=== PATIENT | female | born 1940 | race Caucasian/White ===

== ENCOUNTER → 2023-09-16 12:25 | Outpatient (REF) | payer MEDICARE, OTHER, SELFPAY ==
[2023-09-16 13:52] LABS: ALT (SGPT) 19 U/L (0-35); AST (SGOT) 29 U/L (14-36); Albumin 4.5 g/dl (3.5-5.0); Alkaline Phosphatase 98 U/L (38-126); Blood Urea Nitrogen 22 mg/dl (7-17); Calcium 9.9 mg/dl (8.4-10.2); Carbon Dioxide 26 mmol/L (22-30); Chloride 106 mmol/L (98-107); Glucose 84 mg/dl (70-99); Potassium 4.8 mmol/L (3.5-5.1); Sodium 140 mmol/L (135-145); Total Bilirubin 0.8 mg/dl (0.2-1.3); eGFR > 60.00
== END ==
LOC: REG 12:25
PROVIDERS: ATTENDING PHYSICIAN Nurse Practitioner
DX: K57.92 Diverticulitis of intestine, part unspecified, without perforation or abscess without bleeding (principal)
CPT/HCPCS: 36415; 74177; 80053; Q9967

== ENCOUNTER 2023-09-23 14:52 | Emergency (ER) | payer MEDICARE, OTHER, SELFPAY ==
[2023-09-23 14:54] VITALS: BP 146/75
--- NOTE | 2023-09-23 15:22 | ED.GENMED ---
History of Present Illness
General
Chief Complaint: Abdominal Symptoms
Time Seen by Provider: 09/23/23 14:57
History of Present Illness
History of Present Illness:
83-year-old female presents emergency department for evaluation of persistent symptoms of diverticulitis. The patient started with lower abdominal pain approximately a week and a half ago was seen by her primary care physician. She was started on
Augmentin and [address] week [address] scan showing mild acute diverticulitis. She is completing her course of Augmentin today but symptoms did not improve. Denies fevers or chills. Has had loose stool since the onset of symptoms. No chest pain or
shortness of breath.
Past History
Past History
ED Past Medical History: GERD, HTN, Other (Diverticulosis) and Other (Ischemic colitis)
ED Past Surgical History: Orthopedic
Social History
Tobacco: Non-smoker
Alcohol: Occasional
Drug: None
Personal:
Living: with family
Employment: Employed
Review of Systems
Review of Systems
Allergies reviewed?: Yes
All Other Systems: ROS reviewed and negative except as documented in HPI and ROS
Phy Exam
Physical Exam
Physical Exam:
GEN: Well appearing, NAD, WDWN
Eyes: PERRLA, EOMs intact, no scleral icterus
HENT: NCAT, oral mucosa moist
Lungs: CTAB
Cardiac: RRR
Abdomen: Soft, mild suprapubic and left lower quadrant tenderness, no rigidity
Neuro: AO x 3
MSK: No gross deformity or ecchymosis. No edema. No digital clubbing
Skin: No rashes, petechiae. Normal color, no pallor or jaundice.
Psych: Calm, cooperative, proper hygiene
Course
Orders/Labs/Results
Orders:
Orders
09/23/23 15:22
CT Abd/Pel (IV only)-DH only Urgent
Comment:
Reason For Exam: LLQ pain
09/23/23 15:59
Complete Blood Count/With Diff Urgent
Comprehensive Metabolic Panel Urgent
Urinalysis Reflex To Culture Urgent
Date Specimen was Collected: 09/23/23
Time Specimen was Collected: 15:28
Urine Microscopic Reflex Cult Urgent
Urine Culture Urgent
NOAH Source: U
Specimen Description:
Date Specimen was Collected: 09/23/23
Time Specimen was Collected: 15:28
Abnormal Lab Results
09/23/23
15:59
RBC 3.56 L 10^6/uL
(4.20-5.40)
Hgb 11.2 L g/dL
(12.0-16.0)
Hct 32.8 L %
(37.0-47.0)
MCH 31.5 H pg
(27.0-31.0)
MPV 11.4 H fL
(7.4-10.4)
Chloride 109 H mmol/L
(98-107)
BUN 34 H mg/dl
(7-17)
Urine Ketones Trace A
(Negative)
Leukocyte Esterase Rfl 1+ A
(Negative)
09/23/23 15:59
09/23/23 15:59
Vital Signs
Initial and Last Documented VS:
Initial Vital Signs
Temp Pulse Resp BP Pulse Ox
98.5 F 66 16 146/75 98
09/23/23 14:54 09/23/23 14:54 09/23/23 14:54 09/23/23 14:54 09/23/23 14:54
Last Documented Vital Signs
Temp Pulse Resp BP Pulse Ox
98.5 F 64 16 141/81 99
09/23/23 14:54 09/23/23 17:45 09/23/23 17:45 09/23/23 17:45 09/23/23 17:45
MDM/Problems Addressed
MDM/Problems Addressed:
Repeat CT shows no evidence for perforation or abscess, patient is clinically well with normal labs. Will start a second course of antibiotics and switch to Cipro and metronidazole, discussed importance of clear liquid diet and return parameters
*Critical Care Note
Total Time (30-74mins, 75-104mins- exclusive of procedures): Not Applicable
ED Attending Note
-
Portions of this chart may have been created with voice recognition software.� Occasional wrong word or��sound alike� substitutions may have occurred due to the inherent limitations of voice recognition software.
Discharge Plan
Departure
Patient Disposition: Home (Routine Discharge)
Date of Disposition: 09/23/23
Time of Disposition: 17:43
Patient with high blood pressure during this ER visit?: No
Discharge Problem:
Acute diverticulitis
Instructions: Clear Liquid Diet
Prescriptions:
New
ciprofloxacin HCl 500 mg tablet
500 mg PO BID 7 Days Qty: 14 0RF
metronidazole 500 mg tablet
500 mg PO TID 7 Days Qty: 21 0RF
No Action
losartan 50 MG tablet
50 mg PO DAILY
guar gum 1 PKT packet
1 pkt PO PRN PRN (Reason: constipation)
docosahexaenoic acid-epa 1 CAP capsule
1 cap PO DAILY
turmeric-turmeric root extract 1 EACH capsule
1 ea PO DAILY
omeprazole 40 MG capsule,delayed release(DR/EC)
40 mg PO DAILY
hydrocodone-acetaminophen 1 TABLET tablet
1 tab PO Q4HPRN PRN (Reason: moderate to severe pain) Qty: 15 0RF
docusate sodium [Colace] 100 MG capsule
100 mg PO BID Qty: 30 0RF
magnesium hydroxide [Milk of Magnesia] 400 MG/5 ML suspension
30 ml PO DAILYPRN PRN (Reason: constipation) Qty: 1 0RF
acetaminophen 325 MG tablet
650 mg PO Q4HPRN PRN (Reason: mild pain) Qty: 0 0RF
cholecalciferol (vitamin D3) 1,000 UNITS tablet
1,000 units PO DAILY Qty: 0 0RF
ibuprofen [Advil] 200 MG tablet
600 mg PO Q6HPRN PRN (Reason: pain) Qty: 0 0RF
Referrals:
Aaliyah Pennington CRNP [Family Provider] -
Interventions
Interventions:
*Risk Screen - Suicide Last Done: 09/23/23 15:28
*General Assessment Last Done: 09/23/23 15:28
*Neglect/Abuse Screening Last Done: 09/23/23 15:28
ED- Fall Risk Assessment Last Done: 09/23/23 15:28
*ED COVID-19 Vaccine History Last Done: 09/23/23 15:28
*Nursing Disposition Last Done: 09/23/23 17:59
SK-Ezwtwb-Lpybbjepul Assessment Last Done: 09/23/23 15:28
Discharge Date and Time
Discharge Date/Time: 09/23/23 18:02
Print Language: AZERBAIJANI
[2023-09-23 16:12] LABS: % Basophils 0.8 % (0-2); % Eosinophils 1.8 % (0-6); % Immature Granulocytes 0.1 % (0-0.5); % Lymphocytes 27.4 % (20.5-51.1); % Monocytes 7.5 % (1.7-9.3); % Neutrophils 62.4 % (42.2-75.2); Absolute Basophils 0.1 10^3/uL (0-0.2); Absolute Eosinophils 0.1 10^3/uL (0-0.7); Absolute Lymphocytes 2.1 10^3/uL (1.2-3.4); Absolute Monocytes 0.6 10^3/uL (0.1-0.6); Absolute Neutrophils 4.7 10^3/uL (1.4-6.5); Hematocrit 32.8 % (37.0-47.0); Hemoglobin 11.2 g/dL (12.0-16.0); Mean Corp Hgb Conc. 34.1 g/dL (33.0-37.0); Mean Corpuscular Hgb 31.5 pg (27.0-31.0); Mean Corpuscular Volume 92.1 fL (81.0-99.0); Mean Platelet Volume 11.4 fL (7.4-10.4); Nucleated Red Blood Cells % 0 %; Platelet Count 230 10^3/uL (130-400); Red Blood Cell Count 3.56 10^6/uL (4.20-5.40); Red Cell Dist. Width 13.4 % (11.5-14.5); White Blood Cell Count 7.6 10^3/uL (4.8-10.8)
[2023-09-23 16:26] LABS: ALT (SGPT) 16 U/L (0-35); AST (SGOT) 28 U/L (14-36); Albumin 4.2 g/dl (3.5-5.0); Alkaline Phosphatase 118 U/L (38-126); Blood Urea Nitrogen 34 mg/dl (7-17); Carbon Dioxide 23 mmol/L (22-30); Chloride 109 mmol/L (98-107); Glucose 95 mg/dl (70-99); Potassium 4.1 mmol/L (3.5-5.1); Sodium 140 mmol/L (135-145); Total Bilirubin 0.4 mg/dl (0.2-1.3); Total Protein 6.7 g/dl (6.3-8.2); Urine Albumin Negative (Neg - Trace); Urine Bilirubin Negative (Negative); Urine Character Clear (Clear); Urine Color Yellow; Urine Glucose Negative (Negative); Urine Ketone Trace (Negative); Urine Leukocyte 1+ (Negative); Urine Nitrite Negative (Negative); Urine Occult Blood Negative (Negative); Urine Specific Gravity 1.025 (<1.030); Urine Urobilinogen Negative (Neg - 1+); eGFR > 60.00
[2023-09-23 16:57] LABS: Urine Red Blood Cell 0-2 /HPF (0-2)
[2023-09-23 17:45] VITALS: BP 141/81
== END 2023-09-23 18:02 | disposition home or self-care (01) ==
LOC: EMR 14:52
PROVIDERS: Physician Assistant; EMERGENCY PHYSICIAN Emergency Medicine; FAMILY PHYSICIAN Nurse Practitioner
DX: K57.92 Diverticulitis of intestine, part unspecified, without perforation or abscess without bleeding (principal); K21.9 Gastro-esophageal reflux disease without esophagitis; I10 Essential (primary) hypertension
CPT/HCPCS: 99284; 74177; 80053; 81003; 81015; 85025; 87086; Q9967

== ENCOUNTER → 2023-10-01 12:38 | Outpatient (REF) | payer MEDICARE, OTHER, SELFPAY | LOC: REG 12:38 | PROVIDERS: ATTENDING PHYSICIAN Internal Medicine Gastroenterology; FAMILY PHYSICIAN Nurse Practitioner | DX: R19.7 Diarrhea, unspecified (principal) | CPT/HCPCS: 87324; 87449 ==

== ENCOUNTER 2023-10-07 08:36 | Emergency (ER) | payer MEDICARE, OTHER, SELFPAY ==
[2023-10-07] VITALS (7 sets, daily range): BP systolic 74–136; BP diastolic 55–71; BMI 35.8
--- NOTE | 2023-10-07 08:39 | ED.GENMED ---
History of Present Illness
General
Chief Complaint: Abdominal Pain
Time Seen by Provider: 10/07/23 08:39
History of Present Illness
History of Present Illness:
HPI: The patient came in by ambulance. She has been having abdominal pain over the past month and states she had been on Augmentin initially and then has been on Cipro and Flagyl. She was improving yesterday but then diarrhea recurred yesterday.
She states she was tested for C. difficile last month and she was negative.
EXAM:
GENERAL: Well appearing in no distress
HEENT: Moist oral mucosa
CARDIOVASCULAR: No murmurs, normal heart rate, regular rhythm, No chest wall tenderness
PULMONARY: No respiratory distress, breath sounds are clear and equal
ABDOMEN: Soft with no peritoneal signs, minimal diffuse abdominal tenderness
NEUROLOGIC: Excellent strength all extremities, no coordination deficits
PSYCHIATRIC: Appropriate mental status, normal insight and judgement
EXTREMITIES: Nontender, no edema, moves all extremities equally
SKIN: No rash, no lesions
TIME OF INITIAL ENCOUNTER: 8:45 AM
NUMBER AND COMPLEXITY OF PROBLEMS ADDRESSED AT THE ENCOUNTER
� Chronic conditions affecting care: High blood pressure, diverticulosis, basal cell carcinoma
� Acute Exacerbation and/or Progression of Chronic Illness: This is an acute but recurring problem
� Differential Diagnosis includes: Diverticular disease, C. difficile, infectious diarrhea, IBS
AMOUNT AND/OR COMPLEXITY OF DATA TO BE REVIEWED AND ANALYZED
� I performed an independent evaluation of and my interpretation is:
EKG:
CT:
X-rays:
Laboratory Studies: White count 10.6, BUN 25, creatinine 0.9; C. difficile negative
Other:
� Review of other/old records: I reviewed records. The patient was seen here approximately 2 weeks ago. At that time she had already been on Augmentin and then after ED eval she was switched to Cipro and Flagyl. The CT on
09/23/2023 showed minor diverticulitis.
� Clinical information was obtained by an independent historian: None needed
� Prescriptions/Medications Considered but not given:
� Further testing considered but not performed: Considered CT imaging however the patient has had 2 CTs that showed no more than mild diverticulitis without evidence for complication
RISK OF COMPLICATIONS AND/OR MORBIDITY OR MORTALITY OF PATIENT MANAGEMENT
� Social determinants of health affecting care:
� Discussion with other providers: I have contacted GI front office to try to expedite outpatient follow-up
� Escalation of care including admission/observation vs risk of discharge considered: BUN to creatinine ratio slightly elevated however this has been present in the past. Regardless, she was given IV fluids.
Her white count is within normal range. She appears fairly comfortable. I recommend against further antibiotics given the ongoing diarrhea. C. difficile is negative. Stool cultures pending.
Past History
Past History
ED Past Medical History: GERD, HTN, Other (Diverticulosis) and Other (Ischemic colitis)
ED Past Surgical History: Orthopedic
Social History
Tobacco: Non-smoker
Alcohol: Occasional
Drug: None
Personal:
Living: with family
Employment: Employed
Phy Exam
Physical Exam
Physical Exam:
See HPI
Course
Orders/Labs/Results
Orders:
Orders
10/07/23 08:49
0.9% Sodium Chloride 1000 ml [Nss] 1,000 ml IV BOLUS
10/07/23 08:53
Complete Blood Count/With Diff Urgent
Comprehensive Metabolic Panel Urgent
Lipase Urgent
10/07/23 10:54
Ova & Parasites Giardia/Crypto AG [Giardia/Cryptosporidium Ag] Urgent
NOAH Source: Feces/Stool
Specimen Description:
Date Specimen was Collected: 10/07/23
Time Specimen was Collected: 10:52
STOOL [C difficile Antigen & Toxins] Urgent
NOAH Source: Feces/Stool
Specimen Description:
Date Specimen was Collected: 10/07/23
Time Specimen was Collected: 10:52
Stool Culture Urgent
NOAH Source: Feces/Stool
Specimen Description:
Date Specimen was Collected: 10/07/23
Time Specimen was Collected: 10:52
Abnormal Lab Results
10/07/23
08:53
RBC 3.65 L 10^6/uL
(4.20-5.40)
Hgb 11.3 L g/dL
(12.0-16.0)
Hct 33.6 L %
(37.0-47.0)
MPV 10.9 H fL
(7.4-10.4)
Absolute Neuts (auto) 8.0 H 10^3/uL
(1.4-6.5)
Neutrophils % 75.3 H %
(42.2-75.2)
Lymphocytes % 16.1 L %
(20.5-51.1)
Chloride 108 H mmol/L
(98-107)
BUN 25 H mg/dl
(7-17)
Glucose 109 H mg/dl
(70-99)
10/07/23 08:53
10/07/23 08:53
Vital Signs
Initial and Last Documented VS:
Initial Vital Signs
BP
108/61
10/07/23 08:42
Last Documented Vital Signs
Temp Pulse Resp BP Pulse Ox
98.5 F 81 23 122/55 98
10/07/23 08:44 10/07/23 10:30 10/07/23 10:30 10/07/23 10:00 10/07/23 10:30
*Critical Care Note
Total Time (30-74mins, 75-104mins- exclusive of procedures): Not Applicable
ED Attending Note
-
Portions of this chart may have been created with voice recognition software.� Occasional wrong word or��sound alike� substitutions may have occurred due to the inherent limitations of voice recognition software.
Discharge Plan
Departure
Prescriptions:
No Action
losartan 50 MG tablet
50 mg PO DAILY
guar gum 1 PKT packet
1 pkt PO PRN PRN (Reason: constipation)
docosahexaenoic acid-epa 1 CAP capsule
1 cap PO DAILY
turmeric-turmeric root extract 1 EACH capsule
1 ea PO DAILY
omeprazole 40 MG capsule,delayed release(DR/EC)
40 mg PO DAILY
hydrocodone-acetaminophen 1 TABLET tablet
1 tab PO Q4HPRN PRN (Reason: moderate to severe pain) Qty: 15 0RF
docusate sodium [Colace] 100 MG capsule
100 mg PO BID Qty: 30 0RF
magnesium hydroxide [Milk of Magnesia] 400 MG/5 ML suspension
30 ml PO DAILYPRN PRN (Reason: constipation) Qty: 1 0RF
ciprofloxacin HCl 500 mg tablet
500 mg PO BID 7 Days Qty: 14 0RF
metronidazole 500 mg tablet
500 mg PO TID 7 Days Qty: 21 0RF
acetaminophen 325 MG tablet
650 mg PO Q4HPRN PRN (Reason: mild pain) Qty: 0 0RF
cholecalciferol (vitamin D3) 1,000 UNITS tablet
1,000 units PO DAILY Qty: 0 0RF
ibuprofen [Advil] 200 MG tablet
600 mg PO Q6HPRN PRN (Reason: pain) Qty: 0 0RF
Referrals:
Aaliyah Pennington CRNP [Family Provider] -
Interventions
Interventions:
*Risk Screen - Suicide Last Done: 10/07/23 08:44
*General Assessment Last Done: 10/07/23 08:44
*Neglect/Abuse Screening Last Done: 10/07/23 08:44
ED- Fall Risk Assessment Last Done: 10/07/23 08:44
*ED COVID-19 Vaccine History Last Done: 10/07/23 08:44
JJ-Icrpbp-Xepjkvwovk Assessment Last Done: 10/07/23 08:44
Discharge Date and Time
Print Language: ROMANSH
[2023-10-07] MEDS: NSS 1000 IV (08:55)
[2023-10-07 09:03] LABS: % Basophils 0.6 % (0-2); % Eosinophils 1.9 % (0-6); % Immature Granulocytes 0.2 % (0-0.5); % Lymphocytes 16.1 % (20.5-51.1); % Monocytes 5.9 % (1.7-9.3); % Neutrophils 75.3 % (42.2-75.2); Absolute Basophils 0.1 10^3/uL (0-0.2); Absolute Eosinophils 0.2 10^3/uL (0-0.7); Absolute Lymphocytes 1.7 10^3/uL (1.2-3.4); Absolute Monocytes 0.6 10^3/uL (0.1-0.6); Hematocrit 33.6 % (37.0-47.0); Hemoglobin 11.3 g/dL (12.0-16.0); Mean Corp Hgb Conc. 33.6 g/dL (33.0-37.0); Mean Corpuscular Volume 92.1 fL (81.0-99.0); Mean Platelet Volume 10.9 fL (7.4-10.4); Nucleated Red Blood Cells % 0 %; Platelet Count 254 10^3/uL (130-400); Red Blood Cell Count 3.65 10^6/uL (4.20-5.40); White Blood Cell Count 10.6 10^3/uL (4.8-10.8)
[2023-10-07 09:18] LABS: ALT (SGPT) 20 U/L (0-35); AST (SGOT) 32 U/L (14-36); Albumin 3.8 g/dl (3.5-5.0); Alkaline Phosphatase 77 U/L (38-126); Blood Urea Nitrogen 25 mg/dl (7-17); Calcium 9.5 mg/dl (8.4-10.2); Carbon Dioxide 27 mmol/L (22-30); Chloride 108 mmol/L (98-107); Estimated Creatinine Clearance 44 ml/min; Glucose 109 mg/dl (70-99); Lipase 28 U/L (23-300); Potassium 4.6 mmol/L (3.5-5.1); Sodium 140 mmol/L (135-145); Total Bilirubin 0.9 mg/dl (0.2-1.3); Total Protein 6.3 g/dl (6.3-8.2); eGFR > 60.00
--- NOTE | 2023-10-07 10:58 | EDRN ---
the pt pressed the call ingram and this RN entered the pts room, the pt stated that she wanted to try to have a bowel movement, this RN placed a hat in the toilet and the pt was able to have a bowel movement, this RN sent the sample to the lab, the pt
is resting in stretcher in the lowest position, side rails up x1, call ingram within reach, HOB elevated, no s/s of distress, will continue to monitor the pt closely
== END 2023-10-07 13:14 | disposition home or self-care (01) ==
LOC: EMR 08:36
PROVIDERS: EMERGENCY PHYSICIAN Emergency Medicine; FAMILY PHYSICIAN Nurse Practitioner
DX: R10.9 Unspecified abdominal pain (principal); Z11.52 Encounter for screening for COVID-19
CPT/HCPCS: 99284; 96360; 80053; 83690; 85025; 87045; 87046; 87324; 87328; 87329; 87427; 87449

== ENCOUNTER → 2024-01-20 08:53 | Outpatient (REF) | payer MEDICARE, OTHER, SELFPAY ==
[2024-01-20 10:10] LABS: % Immature Granulocytes 0.3 % (0-0.5); % Lymphocytes 36.3 % (20.5-51.1); % Monocytes 9.5 % (1.7-9.3); % Neutrophils 48.9 % (42.2-75.2); Absolute Basophils 0.1 10^3/uL (0-0.2); Absolute Eosinophils 0.3 10^3/uL (0-0.7); Absolute Lymphocytes 2.6 10^3/uL (1.2-3.4); Absolute Monocytes 0.7 10^3/uL (0.1-0.6); Absolute Neutrophils 3.5 10^3/uL (1.4-6.5); Hematocrit 36.1 % (37.0-47.0); Hemoglobin 12.2 g/dL (12.0-16.0); Mean Corp Hgb Conc. 33.8 g/dL (33.0-37.0); Mean Corpuscular Hgb 30.9 pg (27.0-31.0); Mean Corpuscular Volume 91.4 fL (81.0-99.0); Mean Platelet Volume 11.4 fL (7.4-10.4); Nucleated Red Blood Cells % 0 %; Platelet Count 257 10^3/uL (130-400); Red Blood Cell Count 3.95 10^6/uL (4.20-5.40); Red Cell Dist. Width 13.6 % (11.5-14.5); White Blood Cell Count 7.1 10^3/uL (4.8-10.8)
[2024-01-20 10:59] LABS: ALT (SGPT) 22 U/L (0-35); AST (SGOT) 32 U/L (14-36); Albumin 4.4 g/dl (3.5-5.0); Alkaline Phosphatase 102 U/L (38-126); Blood Urea Nitrogen 26 mg/dl (7-17); Calcium 10.1 mg/dl (8.4-10.2); Carbon Dioxide 29 mmol/L (22-30); Chloride 103 mmol/L (98-107); Glucose 88 mg/dl (70-99); Iron 102 ug/dl (37-170); Potassium 4.5 mmol/L (3.5-5.1); Sodium 140 mmol/L (135-145); Total Bilirubin 0.6 mg/dl (0.2-1.3); Total Cholesterol 236 mg/dl (50-199); Total Protein 7.2 g/dl (6.3-8.2); Triglyceride 61 mg/dl (10-149); Very Low Density Lipoprotein 12 mg/dl (0-30); eGFR > 60.00
[2024-01-20 11:14] LABS: HDL Cholesterol 133 mg/dl; LDL Cholesterol, Calculated 91 mg/dl
[2024-01-20 11:31] LABS: Ferritin 43.6 ng/ml (11.1-264.0)
== END ==
LOC: REG 08:53
PROVIDERS: ATTENDING PHYSICIAN Nurse Practitioner
DX: Z00.00 Encounter for general adult medical examination without abnormal findings (principal); E78.5 Hyperlipidemia, unspecified; R53.82 Chronic fatigue, unspecified; D64.9 Anemia, unspecified
CPT/HCPCS: 36415; 80053; 80061; 82728; 83540; 84443; 85025

== ENCOUNTER → 2024-04-06 11:59 | Outpatient (REF) | payer MEDICARE, OTHER, SELFPAY | LOC: HWWDC 11:59 | PROVIDERS: ATTENDING PHYSICIAN Nurse Practitioner | DX: Z12.31 Encounter for screening mammogram for malignant neoplasm of breast (principal) | CPT/HCPCS: 77063; 77067 ==

== ENCOUNTER → 2024-07-26 12:58 | Outpatient (REF) | payer MEDICARE, OTHER, SELFPAY | LOC: RCS 12:58 | PROVIDERS: ATTENDING PHYSICIAN Internal Medicine Cardiovascular Disease; FAMILY PHYSICIAN Internal Medicine | DX: R06.02 Shortness of breath (principal) | CPT/HCPCS: 93306 ==

== ENCOUNTER → 2024-08-16 09:58 | Outpatient (REF) | payer MEDICARE, OTHER, SELFPAY | LOC: MRI 09:58 | PROVIDERS: ATTENDING PHYSICIAN Specialist; FAMILY PHYSICIAN Internal Medicine | DX: M19.011 Primary osteoarthritis, right shoulder (principal) | CPT/HCPCS: 73221 ==

== ENCOUNTER → 2024-11-21 08:36 | Outpatient (REF) | payer MEDICARE, OTHER, SELFPAY ==
[2024-11-21 10:01] LABS: Hematocrit 35.0 % (37.0-47.0); Hemoglobin 11.7 g/dL (12.0-16.0); Mean Corp Hgb Conc. 33.4 g/dL (33.0-37.0); Mean Corpuscular Volume 91.9 fL (81.0-99.0); Nucleated Red Blood Cells % 0 %; Platelet Count 245 10^3/uL (130-400); Red Cell Dist. Width 13.8 % (11.5-14.5)
[2024-11-21 10:54] LABS: ALT (SGPT) 18 U/L (0-35); AST (SGOT) 25 U/L (14-36); Albumin 4.2 g/dl (3.5-5.0); Alkaline Phosphatase 96 U/L (38-126); Blood Urea Nitrogen 30 mg/dl (7-17); Calcium 10.1 mg/dl (8.4-10.2); Carbon Dioxide 28 mmol/L (22-30); Chloride 107 mmol/L (98-107); Glucose 82 mg/dl (70-99); Potassium 5.1 mmol/L (3.5-5.1); Sodium 141 mmol/L (135-145); Total Protein 7.1 g/dl (6.3-8.2); eGFR 55.90
[2024-11-21 11:03] LABS: C-Reactive Protein < 5.00 mg/L (0.0-10.00)
== END ==
LOC: REG 08:36
PROVIDERS: ATTENDING PHYSICIAN Internal Medicine
DX: R53.83 Other fatigue (principal); I10 Essential (primary) hypertension
CPT/HCPCS: 36415; 80053; 84443; 85025; 85652; 86140

== ENCOUNTER 2025-02-10 22:45 | Emergency (ER) | payer MEDICARE, OTHER, SELFPAY ==
[2025-02-10 22:48] VITALS: BP 182/88
[2025-02-10 23:37] VITALS: BP 176/85
[2025-02-10 23:49] VITALS: BP 137/75
--- NOTE | 2025-02-10 23:55 | ED.GENMED ---
History of Present Illness
<Chaitanya Wilson MD, Resident - Last Filed: 02/11/25 03:26>
General
Chief Complaint: Cardiac Symptoms
Source: patient
Time Seen by Provider: 02/10/25 23:16
History of Present Illness
History of Present Illness:
Patient is an 84-year-old female with past medical history significant for essential hypertension, GERD, constipation, who is here with epigastric pain, burning in throat and epigastric pain radiating to the back between her scapula.
Pain started around 9:30 PM. She had her dinner at 6 PM, she ate chicken that had cheese and was fried from [employer] she describes the pain as burning in nature, intermittent, coming and going in waves. No associated nausea, vomiting, chest pain,
tiredness, dizziness, syncopal or near syncopal episodes.
She recently saw gastroenterology nurse practitioner for constipation who gave her MiraLAX which she took tonight around 7 PM.
Otherwise she feels well, she checked her blood pressure at home when she was experiencing the symptoms and her blood pressure was on the higher side and that is why she came to the ER for further evaluation
Past History
<Chaitanya Wilson MD, Resident - Last Filed: 02/11/25 03:26>
Past History
ED Past Medical History: GERD, HTN, Other (Diverticulosis) and Other (Ischemic colitis)
ED Past Surgical History: Orthopedic
Social History
Tobacco: Non-smoker
Alcohol: Occasional
Drug: None
Personal:
Living: with family
Employment: Employed
Review of Systems
<Chaitanya Wilson MD, Resident - Last Filed: 02/11/25 03:26>
Review of Systems
All Other Systems: ROS reviewed and negative except as documented in HPI and ROS
Phy Exam
<Chaitanya Wilson MD, Resident - Last Filed: 02/11/25 03:26>
General Physical Exam
General Presentation: well appearing and no apparent distress
General Skin: warm and dry
General Habitus: normal
General Mental: alert
General Hydration: appears well hydrated
Cardiovascular Exam
Cardiovascular Exam: regular rate/rhythm, no edema, no murmur and normal peripheral pulses
Pulmonary Exam
Pulmonary Exam: lungs clear and no respiratory distress
Gastrointestinal Exam
Gastrointestinal Exam: normal bowel sounds, non tender and soft
Neurological Exam
Neurological Exam: alert and oriented x3
Musculoskeletal Exam
Musculoskeletal Exam: full ROM
Skin Exam
Skin Exam: normal color and warm/dry
Psychiatric Exam
Psychiatric Exam: normal mood/affect
Course
<Chaitanya Wilson MD, Resident - Last Filed: 02/11/25 03:26>
Orders/Labs/Results
Orders:
Orders
02/10/25 22:51
ECG [Electrocardiogram (*1)] Urgent
Reason for Study: Chest Pain
EKG- Treatment ONCE
02/10/25 23:53
Pantoprazole [Protonix IV] 40 mg IV NOW ONE
02/10/25 23:55
CBC/With Diff [Complete Blood Count/With Diff] Urgent
Comprehensive Metabolic Panel Urgent
Lipase Urgent
Troponin I Urgent
02/11/25 00:34
Mag Hydrox/Al Hydrox/Simeth [Maalox] 30 ml Phenobarb/Hyoscy/Atropine/Scop [] 10 ml PO NOW
02/11/25 00:40
Mag Hydrox/Al Hydrox/Simeth [Maalox] 30 ml .ROUTE .STK-MED ONE
Phenobarb/Hyoscy/Atropine/Scop [] 10 ml .ROUTE .STK-MED ONE
02/11/25 01:39
CR Chest - 2 Views Urgent
Comment:
Reason For Exam: acute CP
02/11/25 01:40
EKG- Treatment ONCE
02/11/25 02:00
Electrocardiogram (*1) Urgent
Reason for Study: Chest Pain
02/11/25 02:05
Troponin I Urgent
Abnormal Lab Results
02/10/25
23:55
RBC 3.62 L 10^6/uL
(4.20-5.40)
Hgb 11.4 L g/dL
(12.0-16.0)
Hct 33.2 L %
(37.0-47.0)
MCH 31.5 H pg
(27.0-31.0)
MPV 11.0 H fL
(7.4-10.4)
Absolute Monos (auto) 0.8 H 10^3/uL
(0.1-0.6)
Monocytes % 10.1 H %
(1.7-9.3)
BUN 39 H mg/dl
(7-17)
Creatinine 1.2 H mg/dL
(0.6-1.0)
02/10/25 23:55
02/10/25 23:55
Vital Signs
Initial and Last Documented VS:
Initial Vital Signs
Temp Pulse Resp BP Pulse Ox
97.8 F 87 18 182/88 98
02/10/25 22:48 02/10/25 22:48 02/10/25 22:48 02/10/25 22:48 02/10/25 22:48
Last Documented Vital Signs
Temp Pulse Resp BP Pulse Ox
97.8 F 79 27 145/68 97
02/10/25 22:48 02/11/25 02:45 02/11/25 02:45 02/11/25 02:11 02/11/25 01:45
<Luzma Adam, DO - Last Filed: 02/11/25 06:40>
Orders/Labs/Results
Orders:
Orders
02/10/25 22:51
ECG [Electrocardiogram (*1)] Urgent
Reason for Study: Chest Pain
EKG- Treatment ONCE
02/10/25 23:53
Pantoprazole [Protonix IV] 40 mg IV NOW ONE
02/10/25 23:55
CBC/With Diff [Complete Blood Count/With Diff] Urgent
Comprehensive Metabolic Panel Urgent
Lipase Urgent
Troponin I Urgent
02/11/25 00:34
Mag Hydrox/Al Hydrox/Simeth [Maalox] 30 ml Phenobarb/Hyoscy/Atropine/Scop [] 10 ml PO NOW
02/11/25 00:40
Mag Hydrox/Al Hydrox/Simeth [Maalox] 30 ml .ROUTE .STK-MED ONE
Phenobarb/Hyoscy/Atropine/Scop [] 10 ml .ROUTE .STK-MED ONE
02/11/25 01:39
CR Chest - 2 Views Urgent
Comment:
Reason For Exam: acute CP
02/11/25 01:40
EKG- Treatment ONCE
02/11/25 02:00
Electrocardiogram (*1) Urgent
Reason for Study: Chest Pain
02/11/25 02:05
Troponin I Urgent
Abnormal Lab Results
02/10/25
23:55
RBC 3.62 L 10^6/uL
(4.20-5.40)
Hgb 11.4 L g/dL
(12.0-16.0)
Hct 33.2 L %
(37.0-47.0)
MCH 31.5 H pg
(27.0-31.0)
MPV 11.0 H fL
(7.4-10.4)
Absolute Monos (auto) 0.8 H 10^3/uL
(0.1-0.6)
Monocytes % 10.1 H %
(1.7-9.3)
BUN 39 H mg/dl
(7-17)
Creatinine 1.2 H mg/dL
(0.6-1.0)
02/10/25 23:55
02/10/25 23:55
Vital Signs
Initial and Last Documented VS:
Initial Vital Signs
Temp Pulse Resp BP Pulse Ox
97.8 F 87 18 182/88 98
02/10/25 22:48 02/10/25 22:48 02/10/25 22:48 02/10/25 22:48 02/10/25 22:48
Last Documented Vital Signs
Temp Pulse Resp BP Pulse Ox
97.8 F 79 27 145/68 97
02/10/25 22:48 02/11/25 02:45 02/11/25 02:45 02/11/25 02:11 02/11/25 01:45
<Chaitanya Wilson MD, Resident - Last Filed: 02/11/25 03:26>
MDM/Problems Addressed
Differential Diagnosis Includes:
Acid reflux/GERD
Aortic dissection
Cholelithiasis /Cholecystitis
Pancreatitis
ACS
MDM/Problems Addressed:
EKG and troponin levels normal
Repeat EKG and troponin levels normal as well
Chest x-ray within normal limits with no widening of mediastinum
Blood work looks fine
Patient responded well to omeprazole and GI cocktail
Discussed with the patient
Reassurance provided
Discharge and follow-up with primary care
Instructions to return to ER
<Chaitanya Wilson MD, Resident - Last Filed: 02/11/25 03:26>
*Pulse Oximetry
SaO2: 100
Oxygen Mode of Delivery: Room air
Patient hypoxic: no
*Critical Care Note
Total Time (30-74mins, 75-104mins- exclusive of procedures): Not Applicable
ED Attending Note
<Chaitanya Wilson MD, Resident - Last Filed: 02/11/25 03:26>
-
Portions of this chart may have been created with voice recognition software.� Occasional wrong word or��sound alike� substitutions may have occurred due to the inherent limitations of voice recognition software.
<Luzma Adam DO - Last Filed: 02/11/25 06:40>
ED Attending Note
Patient seen and examined by attending physician: Yes
I performed a history and physical exam of patient and discussed management with resident, I reviewed resident's note and agree with documented findings and plan of care.: Yes
ED Attending Note:
84-year-old woman with history of herself to the ED tonight with complaints of epigastric and lower substernal burning discomfort accompanied with lower throat burning discomfort. Symptoms began around 9 PM. Epigastric, lower chest discomfort
intermittently radiates to her mid back between her shoulders.
She did eat a spicy somewhat fatty dinner around 6 PM. She was decorating her [place] tree when symptoms began. No nausea or vomiting, no dizziness nor lightheadedness, no palpitations. She does have history of GERD, rare occasions, current
symptoms feel similar but much more intense. She has not taken anything for her discomfort. She was concerned when she checked her blood pressure and it was elevated at home.
She does have history of hypertension but generally well-controlled.
84-year-old woman appears somewhat younger than stated age, bright and alert, pleasant, appears in no acute distress. Easily communicative.
Posterior pharynx is clear.
Neck is supple, nontender.
Heart is regular rate and rhythm.
Lungs are clear to auscultation. No respiratory distress.
Abdomen is soft, nondistended, minimal tenderness epigastric region with deep palpation only.
Concern for ACS, GERD, other consideration is aortic dissection. Blood pressure moderately elevated initially, has improved without intervention but not quite normalized.
EKG is unremarkable showing normal sinus rhythm, normal axis, normal intervals. Unchanged from previous August 2021.
Will check labs, troponin and will trial Protonix and a GI cocktail.
Will consider imaging depending on laboratory results and clinical course.
03:15
Patient reports prompt relief of discomfort after GI cocktail and IV Protonix.
Labs are unremarkable thus far. Troponin within normal limits. Repeat EKG similar and unchanged. Awaiting repeat troponin. If remains within normal limits, will discharge to home with recommendations to maintain a bland diet as well as resume
omeprazole 40 mg daily for at least the next 7 to 10 days.
Prompt follow-up with PCP for recheck.
Return precautions discussed.
Discharge Plan
Departure
Patient Disposition: Home (Routine Discharge)
Date of Disposition: 02/11/25
Time of Disposition: 03:20
Patient with high blood pressure during this ER visit?: No
Condition: Fair
Discharge Problem:
GERD (gastroesophageal reflux disease)
Instructions: Acid reflux and GERD in adults - ED (DC)
Prescriptions:
No Action
losartan 50 MG tablet
50 mg PO DAILY
guar gum 1 PKT packet
1 pkt PO PRN PRN (Reason: constipation)
docosahexaenoic acid-epa 1 CAP capsule
1 cap PO DAILY
turmeric-turmeric root extract 1 EACH capsule
1 ea PO DAILY
omeprazole 40 MG capsule,delayed release(DR/EC)
40 mg PO DAILY
hydrocodone-acetaminophen 1 TABLET tablet
1 tab PO Q4HPRN PRN (Reason: moderate to severe pain) Qty: 15 0RF
docusate sodium [Colace] 100 MG capsule
100 mg PO BID Qty: 30 0RF
magnesium hydroxide [Milk of Magnesia] 400 MG/5 ML suspension
30 ml PO DAILYPRN PRN (Reason: constipation) Qty: 1 0RF
ciprofloxacin HCl 500 mg tablet
500 mg PO BID 7 Days Qty: 14 0RF
metronidazole 500 mg tablet
500 mg PO TID 7 Days Qty: 21 0RF
acetaminophen 325 MG tablet
650 mg PO Q4HPRN PRN (Reason: mild pain) Qty: 0 0RF
cholecalciferol (vitamin D3) 1,000 UNITS tablet
1,000 units PO DAILY Qty: 0 0RF
ibuprofen [Advil] 200 MG tablet
600 mg PO Q6HPRN PRN (Reason: pain) Qty: 0 0RF
Referrals:
Aaliyah Pennington CRNP [Family Provider, Internal Medicine]
Activity Restrictions/Additional Instructions:
USE OMEPRAZOLE 40MG DAILY FOR NEXT WEEK
BLAND DIET FOR NEXT FEW DAYS
AVOID GREASY FOODS
FOLLOW UP WITH PCP
CAN USE MYLANTA LIQUID NEEDED
IN CASE OF SEVERE PAIN,FEVER,CHEST PAIN OR ANY ALARMING S/S PLEASE RETURN TO THE ER
Interventions
Interventions:
*Risk Screen - Suicide Last Done: 02/10/25 22:48
*General Assessment Last Done: 02/10/25 22:48
*Neglect/Abuse Screening Last Done: 02/10/25 23:58
*ED COVID-19 Vaccine History Last Done: 02/10/25 23:58
*ED Influenza Vaccine History Last Done: 02/10/25 23:58
[facility] Fall Risk Assessment Tool Last Done: 02/11/25 00:01
*Nursing Disposition Last Done: 02/11/25 03:41
ED- Pulmonary Assessment Last Done: 02/11/25 00:00
ED- Cardiac Assessment Last Done: 02/11/25 00:00
Discharge Date and Time
Discharge Date/Time: 02/11/25 04:31
Print Language: ARMENIAN
[2025-02-10 23:58] VITALS: BMI 38.2
[2025-02-10] MEDS: PROTONIX IV 40 MG IV (23:59)
[2025-02-11] VITALS: BP 151/73
[2025-02-11 00:20] LABS: Hematocrit 33.2 % (37.0-47.0); Hemoglobin 11.4 g/dL (12.0-16.0); Mean Corp Hgb Conc. 34.3 g/dL (33.0-37.0); Mean Corpuscular Volume 91.7 fL (81.0-99.0); Nucleated Red Blood Cells % 0 %; Platelet Count 230 10^3/uL (130-400); Red Cell Dist. Width 13.6 % (11.5-14.5)
[2025-02-11 00:26] LABS: ALT (SGPT) 20 U/L (0-35); AST (SGOT) 31 U/L (14-36); Albumin 4.2 g/dl (3.5-5.0); Alkaline Phosphatase 110 U/L (38-126); Blood Urea Nitrogen 39 mg/dl (7-17); Calcium 9.7 mg/dl (8.4-10.2); Carbon Dioxide 25 mmol/L (22-30); Chloride 106 mmol/L (98-107); Estimated Creatinine Clearance 34 ml/min; Glucose 99 mg/dl (70-99); Lipase 58 U/L (23-300); Potassium 4.2 mmol/L (3.5-5.1); Sodium 138 mmol/L (135-145); Total Protein 6.9 g/dl (6.3-8.2); eGFR 44.91
[2025-02-11 00:38] LABS: Troponin I 0.022 ng/ml
[2025-02-11] MEDS: MAALOX 40 PO (00:42)
[2025-02-11 01:00] VITALS: BP 157/80
--- NOTE | 2025-02-11 01:32 | EDRN ---
Patient reports feeling a little better from GI cocktail, repositioned head of bed and provided patient with a pillow, call ingram in reach.
[2025-02-11 02:11] VITALS: BP 145/68
[2025-02-11 02:50] LABS: Troponin I 0.023 ng/ml
--- NOTE | 2025-02-11 02:58 | EDRN ---
Patient ambulated into the restroom and back in bed resting comfortably
== END 2025-02-11 04:31 | disposition home or self-care (01) ==
LOC: EMR 22:45
PROVIDERS: EMERGENCY PHYSICIAN Emergency Medicine; FAMILY PHYSICIAN Nurse Practitioner
DX: K21.9 Gastro-esophageal reflux disease without esophagitis (principal); I10 Essential (primary) hypertension
CPT/HCPCS: 99284; 96374; 71046; 80053; 83690; 84484; 85025; 93005